=== PATIENT | female | born 1950 | race Hispanic/Latino ===

== ENCOUNTER → 2018-05-28 | Outpatient (CLI) | payer OTHER ==
[~2018-05-28] MED LIST: CENTRUM COMPLE1 EACH PO; CO Q1060 MG PO; CRANBERRY200 MG PO; FISH OIL 1,2001 EAC1 PO; PRAVASTATIN PO; VIT B12 PO; VIT D3 PO
== END ==
LOC: MAMMO 08:41
PROVIDERS: ATTEND Internal Medicine
DX: Z12.31 Encounter for screening mammogram for malignant neoplasm of breast (principal)
CPT/HCPCS: 77067

== ENCOUNTER → 2018-06-10 | Outpatient (CLI) | payer MEDICARE ==
--- NOTE | 2018-06-11 08:29 | Diagnostic Imaging Report ---
#[id number] - MGDXRT #UNILATERAL RIGHT DIGITAL DIAGNOSTIC MAMMOGRAM WITH CAD: 06/10/2018 Comparison is made to exams dated: 05/28/2018 mammogram, 08/24/2012 mammogram and 07/08/2012 mammogram - [facility]. Current study contains 3 films. The tissue of the right breast is heterogeneously dense. This may lower the sensitivity of mammography. Current study was also evaluated with a Computer Aided Detection (CAD) system. There are clustered heterogeneous calcifications in the right breast at 10 o'clock middle depth. Scattered calcifications are noted elsewhere. No other significant masses or calcifications are seen in the breast. IMPRESSION: HIGHLY SUGGESTIVE OF MALIGNANCY The clustered heterogeneous calcifications in the right breast are highly suggestive of malignancy. A stereotactic biopsy is recommended. A phone call was made to Dr Lilo Doan and the case was discussed. The patient was informed of the suspicious nature of the calcifications and the need for biopsy. Kuldeep Espinosa Jr., D.O. cw/:06/10/2018 15:37:36 [employer] Spreading Machine Operator: Carmen MARTINEZ(Edilberto)(M), [facility] letter sent: Biopsy Required Mammogram BI-RADS: 5 Highly suggestive of malignancy
== END ==
LOC: MAMMO 13:27
PROVIDERS: ATTEND Internal Medicine
DX: N64.59 Other signs and symptoms in breast (principal)

== ENCOUNTER → 2018-07-03 | Outpatient (CLI) | payer MEDICARE ==
[~2018-07-03] MED LIST changes: +LIDOCAINE 2% /EPINEPHRINE 20 ML SDV INJ ONE; +LIDOCAINE HCL 1% LOCAL INJ 20 ML VIAL ONE; +SODIUM CHLORIDE 0.9% 250ML 250 ML ONE
== END ==
LOC: MAMMO 11:57
PROVIDERS: ATTEND Internal Medicine
DX: R92.1 Mammographic calcification found on diagnostic imaging of breast (principal)
CPT/HCPCS: 19081; 88305; J2001 ×2; J7050

== ENCOUNTER → 2022-04-17 | Outpatient (CLI) | payer MEDICARE ==
[~2022-04-17] MED LIST changes: -LIDOCAINE 2% /EPINEPHRINE 20 ML SDV INJ ONE; -LIDOCAINE HCL 1% LOCAL INJ 20 ML VIAL ONE; -SODIUM CHLORIDE 0.9% 250ML 250 ML ONE
== END ==
LOC: DX 11:54
PROVIDERS: ATTEND Family Medicine
DX: M85.88 Other specified disorders of bone density and structure, other site (principal)
CPT/HCPCS: 77080